=== PATIENT | female | born 1930 | race Caucasian/White ===

== ENCOUNTER → 2018-01-25 | Day surgery (SDC) | payer OTHER, BC ==
[2018-01-19 15:18] VITALS: BMI 27.7
[~2018-01-25] MED LIST: MIDAZOLAM HCL 2 MG/2 ML SINGLE DOSE VIAL ONE; ONDANSETRON 4 MG/2 ML VIAL ONE
[2018-01-25 07:57] VITALS: BP 150/78; PULSE 72; TEMP 97.9
[2018-01-25 08:17] LABS: INR 1.92 (0.82-1.09); PROTHROMBIN TIME (PATIENT) 21.2 SEC (10.2-13.0)
== END | disposition home or self-care (01) ==
LOC: FASU 07:03
PROVIDERS: ATTEND Orthopaedic Surgery Hand Surgery
PROC: 01N50ZZ Release Median Nerve, Open Approach (ICD-10-PCS; principal; 2018-01-25)
DX: G56.01 Carpal tunnel syndrome, right upper limb (principal); Z53.8 Procedure and treatment not carried out for other reasons
CPT/HCPCS: 36415; 85610

== ENCOUNTER 2018-01-26 08:56 | Day surgery (SDC) | payer OTHER, BC ==
[2018-01-26 10:05] LABS: INR 1.39 (0.82-1.09); PROTHROMBIN TIME (PATIENT) 15.5 SEC (10.2-13.0)
[2018-01-26 10:06] VITALS: BMI 27.7
[2018-01-26] MEDS ORDERED: MIDAZOLAM HCL 2 MG/2 ML SINGLE DOSE VIAL ONE (10:09)
[2018-01-26] MEDS ORDERED: PROPOFOL 20 ML ONE (10:09)
[2018-01-26] MEDS ORDERED: LIDOCAINE 1%/EPI 1:100000 (20 ML MULTI DOSE VIAL) ONE (10:31)
[2018-01-26] MEDS ORDERED: SODIUM BICARBONATE 8.4% 50 MEQ/50 ML VIAL ONE (10:31)
[2018-01-26] MEDS ORDERED: LIDOCAINE HCL 2% (20ML MULTI-DOSE VIAL) NR ONE (11:02)
[2018-01-26] MEDS ORDERED: ONDANSETRON 4 MG/2 ML VIAL ONE (11:25)
[2018-01-26] MEDS ORDERED: DEXAMETHASONE SOD PHOSPHATE 4 MG/1 ML VIAL ONE (11:25)
[2018-01-26 12:53] VITALS: TEMP 97.9
[2018-01-26 13:34] VITALS: BP 133/79; PULSE 72
[2018-01-26] MEDS ORDERED: ceFAZolin SODIUM 1 GM VIAL ONE (13:37)
[2018-01-26] MEDS ORDERED: ONDANSETRON 4 MG/2 ML VIAL IVPUSH PRN (15:19)
[2018-01-26] MEDS ORDERED: oxyCODONE HCL 5 MG TABLET PO PRN (15:19)
[2018-01-26] MEDS ORDERED: LACTATED RINGERS SOLUTION 1,000 ML IV SCH (15:30)
--- NOTE | 2018-01-26 19:47 | OP ---
DATE OF OPERATION: 01/26/2018 PREOPERATIVE DIAGNOSIS: 1. Right index trigger finger. 2. Right carpal tunnel syndrome. POSTOPERATIVE DIAGNOSES: 1. Right index trigger finger. 2. Right carpal tunnel syndrome. OPERATIVE PROCEDURE: 1. Right index trigger finger release. 2. Right carpal tunnel release. SURGEON: Will Garza MD ANESTHESIA: Local with sedation. COMPLICATIONS: None. ESTIMATED BLOOD LOSS: Minimal. INDICATION FOR PROCEDURE: The patient is an 87-year-old female with the above findings, indicated for operative treatment. The risks, benefits and alternatives were discussed with the patient at length and proper informed consent was obtained. Of note, the patient was scheduled for this procedure yesterday. However, her INR was too high and so it was rescheduled for today. Today, her INR was at a satisfactory level. DESCRIPTION OF PROCEDURE: After proper identification of the patient and the correct operative site, the patient was brought to the operating room. Sedation was given by the anesthesiologist. Local anesthesia was given with 1% lidocaine with epinephrine and sodium bicarbonate. After letting the epinephrine set for 30 minutes, the patient was placed supine on the operating table with all bony prominences well padded. The right upper extremity was prepped and draped in the usual sterile fashion. A longitudinal incision was made over the proximal aspect of the palm. The incision was taken sharply through the skin with blunt and sharp dissection through the subcutaneous tissues. Meticulous hemostasis was achieved with bipolar electrocautery. The palmar fascia was divided longitudinally. The transverse carpal ligament along with the distal 4 cm of the antebrachial fascia were divided longitudinally under direct visualization with loupe magnification. This provided complete release of the median nerve at the wrist. The wound was irrigated and repaired with 5-0 nylon suture. A second incision was made over the A1 eliot of the right index finger. The incision was taken sharply through the skin with blunt dissection through the subcutaneous tissues. Again, hemostasis was achieved with bipolar electrocautery. The A1 eliot was identified and divided longitudinally. Mild fraying of the tendons was noted. The patient was asked to flex and extend her finger. No further triggering occurred and full range of motion was achieved. The wound was repaired with 5-0 nylon suture. Sterile dressings were applied. The patient brought to the recovery room in stable condition. She tolerated the procedure well. WILL GARZA M.D. [id number]
== END 2018-01-26 13:36 | disposition home or self-care (01) ==
LOC: FASU 08:56
PROVIDERS: ATTEND Orthopaedic Surgery Hand Surgery
PROC: 0LN70ZZ Release Right Hand Tendon, Open Approach (ICD-10-PCS; 2018-01-26)
PROC: 01N50ZZ Release Median Nerve, Open Approach (ICD-10-PCS; principal; 2018-01-26 11:31)
DX: G56.01 Carpal tunnel syndrome, right upper limb (principal); M65.321 Trigger finger, right index finger
CPT/HCPCS: 36415; 85610; 94760

== ENCOUNTER 2018-07-02 16:23 | Emergency (ER) | payer OTHER, BC | END 2018-07-02 18:06 | disposition home or self-care (01) | LOC: JERFT 16:23 ==

== ENCOUNTER 2018-08-02 12:54 | Emergency (ER) | payer OTHER, BC ==
[2018-08-02 13:34] VITALS: BP 109/59; PULSE 71; TEMP 97.8; BMI 27.3
--- NOTE | 2018-08-02 13:43 | PDOC ---
History of Present Illness - General Chief Complaint: Weakness Stated Complaint: Weakness Time Seen by Provider: 08/02/18 13:41 - History of Present Illness Initial Comments: 08/02/18 13:43 Ms. 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 Patient reports she is typically able to talk "for blocks" however lately she has been unable to cross the room without feeling weak. Patient denies any SOB or other symptoms however reports she stops walking as she knows she is "about to become weak" if she continues. Patient denies any other symptoms at this time. The patient denies chest pain, shortness of breath, headache and dizziness. Denies fever, chills, nausea, vomit, diarrhea and constipation. Denies dysuria, frequency, urgency and hematuria. Past History - Past Medical History Allergies/Adverse Reactions: Allergies Allergy/AdvReac Type Severity Reaction Status Date / Time No Known Allergies Allergy Verified 08/02/18 13:34 Home Medications: Ambulatory Orders Rosuvastatin [Crestor -] 10 mg PO HS #30 tablet 07/06/14 Sertraline HCl [Zoloft -] 50 mg PO DAILY #30 tablet 07/06/14 Warfarin Na [Coumadin -] 5 mg PO DAILY@1800 #30 tablet 07/06/14 Gabapentin 100 mg PO QID #120 capsule 08/14/15 Valsartan [Diovan] 160 mg PO DAILY 01/19/18 Acetaminophen 650 mg PO ASDIR PRN 01/25/18 Methocarbamol [Robaxin -] 500 mg PO BID PRN #14 tablet 07/02/18 Methylprednisolone [Medrol Dose Master] 4 mg PO ASDIR #21 tablet 07/02/18 Nitrofurantoin Monohyd/M-Cryst [Macrobid -] 100 mg PO BID #10 capsule 08/02/18 Anemia: No Asthma: No Cancer: No Cardiac Disorders: Yes (H/O Atrial Fibrillation) CVA: Yes (2017, NO WEAKNESS) COPD: No CHF: No Dementia: No Diabetes: No GI Disorders: No Disorders: No HTN: Yes Hypercholesterolemia: Yes Liver Disease: No Seizures: No Thyroid Disease: No - Surgical History Abdominal Surgery: No Appendectomy: No Cardiac Surgery: No Cholecystectomy: No Lung Surgery: No Neurologic Surgery: No Orthopedic Surgery: Yes (RIGHT KNEE REPLACEMENT) - Immunization History Immunization Up to Date: Yes - Suicide/Smoking/Psychosocial Hx Smoking History: Never smoked Have you smoked in the past 12 months: No Information on smoking cessation initiated: No Hx Alcohol Use: No Drug/Substance Use Hx: No Substance Use Type: None Hx Substance Use Treatment: No Review of Systems - Review of Systems Comments:: 08/02/18 14:15 GENERAL/CONSTITUTIONAL: +Weakness as described. No fever or chills. HEAD, EYES, EARS, NOSE AND THROAT: No change in vision. No ear pain or discharge. No sore throat. CARDIOVASCULAR: No chest pain or shortness of breath RESPIRATORY: No cough, wheezing, or hemoptysis. GASTROINTESTINAL: No nausea, vomiting, diarrhea or constipation. GENITOURINARY: No dysuria, frequency, or change in urination. MUSCULOSKELETAL: No joint or muscle swelling or pain. No neck or back pain. SKIN: No rash NEUROLOGIC: No headache, vertigo, loss of consciousness, or change in strength/ sensation. ENDOCRINE: No increased thirst. No abnormal weight change HEMATOLOGIC/LYMPHATIC: No anemia, easy bleeding, or history of blood clots. ALLERGIC/IMMUNOLOGIC: No hives or skin allergy. *Physical Exam - Vital Signs Last Vital Signs Temp Pulse Resp BP Pulse Ox 97.8 F 71 18 109/59 L 97 08/02/18 13:31 08/02/18 13:31 08/02/18 13:31 08/02/18 13:31 08/02/18 13:31 - Physical Exam Comments: 08/02/18 14:18 GENERAL: Awake, alert, and fully oriented, in no acute distress HEAD: No signs of trauma, normocephalic, atraumatic EYES: PERRLA, EOMI, sclera anicteric, conjunctiva clear ENT: Auricles normal inspection, hearing grossly normal, nares patent, oropharynx clear without exudates. Moist mucosa NECK: Normal ROM, supple, no lymphadenopathy, JVD, or masses LUNGS: No distress, speaks full sentences, clear to auscultation bilaterally HEART: +Afib rhythm, regular rate, normal S1 and S2, no murmurs, rubs or gallops , peripheral pulses normal and equal bilaterally. ABDOMEN: Soft, nontender, normoactive bowel sounds. No guarding, no rebound. No masses EXTREMITIES: Normal inspection, Normal range of motion, no edema. No clubbing or cyanosis. NEUROLOGICAL: Cranial nerves II through XII grossly intact. Normal speech, no focal sensorimotor deficits SKIN: Warm, Dry, normal turgor, no rashes or lesions noted. ED Treatment Course - LABORATORY CBC & Chemistry Diagram: 08/02/18 14:58 08/02/18 14:58 Medical Decision Making - Medical Decision Making 08/02/18 15:52 Ms. Howard is an 88 yo female w/ pmh as described who presents for evaluation of weakness as described concerning infection vs. electrolyte abnormality vs. cardiologic process. Patient evaluated with labs as below, EKG, and CXR. Patient found to have UTI. Treatment started w/ rocephin in ED. Patient will be discharged on outpatient ABX with strict return precautions. 08/02/18 17:40 Patient able to ambulate successfully w/out assistance to bathroom. Patient tolerated PO in ED. Discharging to home. Laboratory Results - last 24 hr 08/02/18 08/02/18 08/02/18 14:09 14:58 14:58 WBC 3.3 L RBC 3.94 Hgb 11.8 Hct 34.6 MCV 87.8 MCH 29.9 MCHC 34.0 RDW 15.2 Plt Count 208 D MPV 7.3 L Absolute Neuts (auto) 1.9 Neutrophils % 57.1 Lymphocytes % 31.5 D Monocytes % 10.5 H Eosinophils % 0.2 Basophils % 0.7 Nucleated RBC % 0 PT with INR INR PTT (Actin FS) Sodium 140 Potassium 4.1 Chloride 110 H Carbon Dioxide 25 Anion Gap 5 L BUN 23.1 H Creatinine 1.2 Est GFR (CKD-EPI)AfAm 47.39 Est GFR (CKD-EPI)NonAf 40.89 Random Glucose 125 H Calcium 8.1 L Total Bilirubin 0.2 AST 23 ALT 19 Alkaline Phosphatase 68 Creatine Kinase 53 Troponin I < 0.02 Total Protein 6.1 L Albumin 3.2 L Urine Color Yellow Urine Appearance Clear Urine pH 5.0 Ur Specific Seymour 1.029 Urine Protein Trace Urine Glucose (UA) Negative Urine Ketones Trace H Urine Blood Negative Urine Nitrite Negative Urine Bilirubin Negative Urine Urobilinogen 1.0 Ur Leukocyte Esterase 2+ H Urine WBC (Auto) 55 Urine Casts (Auto) 24 U Pathogenic Cast Auto No Result Required. U Epithel Cells (Auto) 0.8 Urine Bacteria (Auto) 42.2 08/02/18 14:58 WBC RBC Hgb Hct MCV MCH MCHC RDW Plt Count MPV Absolute Neuts (auto) Neutrophils % Lymphocytes % Monocytes % Eosinophils % Basophils % Nucleated RBC % PT with INR 24.50 H INR 2.06 H PTT (Actin FS) 45.5 H Sodium Potassium Chloride Carbon Dioxide Anion Gap BUN Creatinine Est GFR (CKD-EPI)AfAm Est GFR (CKD-EPI)NonAf Random Glucose Calcium Total Bilirubin AST ALT Alkaline Phosphatase Creatine Kinase Troponin I Total Protein Albumin Urine Color Urine Appearance Urine pH Ur Specific Seymour Urine Protein Urine Glucose (UA) Urine Ketones Urine Blood Urine Nitrite Urine Bilirubin Urine Urobilinogen Ur Leukocyte Esterase Urine WBC (Auto) Urine Casts (Auto) U Pathogenic Cast Auto U Epithel Cells (Auto) Urine Bacteria (Auto) *DC/Admit/Observation/Transfer Diagnosis at time of Disposition: UTI (urinary tract infection) Qualifiers: Urinary tract infection type: site unspecified Hematuria presence: without hematuria Qualified Code(s): N39.0 - Urinary tract infection, site not specified - Discharge Dispostion Disposition: HOME - Referrals Referrals: Ron Palafox MD [Primary Care Provider] - - Patient Instructions Printed Discharge Instructions: DI for Urinary Tract Infection (UTI) Additional Instructions: You were evaluate today in the ER for your symptoms and found to be dehydrated with a UTI. Your symptoms improved following hydration and we started you on antibiotics in the ER. We also sent a prescription to your pharmacy. Please take all medications as proscribed. Return to ER if any fever, chills, pain, difficulty taking medications, worsening of weakness, or other concerning symptoms. - Post Discharge Activity
[2018-08-02] MEDS ORDERED: SODIUM CHLORIDE 500 ML IV STA ×2 (14:23→16:03)
[2018-08-02 15:08] LABS: BASO % 0.7 % (0-2.0); EOS % 0.2 % (0-4.5); HEMATOCRIT 34.6 % (32.4-45.2); HEMOGLOBIN 11.8 GM/dL (10.7-15.3); LYMPH % 31.5 % (8-40); MCH 29.9 pg (25.7-33.7); MEAN CELL VOLUME 87.8 fl (80-96); MEAN PLT VOLUME 7.3 fl (7.5-11.1); MONO % 10.5 % (3.8-10.2); NEUT % 57.1 % (42.8-82.8); PLATELET COUNT 208 K/MM3 (134-434); RBC 3.94 M/mm3 (3.60-5.2); RDW 15.2 % (11.6-15.6); WHITE BLOOD COUNT 3.3 K/mm3 (4.0-10.0)
[2018-08-02 15:28] LABS: INR 2.06 (0.83-1.09); PROTHROMBIN TIME (PATIENT) 24.5 SEC (9.7-13.0)
[2018-08-02 15:31] LABS: ACTIVATED PTT 45.5 SECONDS (25.2-36.5)
[2018-08-02 15:42] LABS: EPI CELLS 0.8 /HPF (0-5/HPF); HYALINE CASTS 24 /lpf (0-8); URINE APPEARANCE CLEAR; URINE BACTERIA 42.2 /hpf (NEGATIVE); URINE BILIRUBIN NEGATIVE (NEGATIVE); URINE COLOR YELLOW; URINE GLUCOSE (UA) NEGATIVE (NEGATIVE); URINE KETONE TRACE (NEGATIVE); URINE LEUK ESTERASE 2+ (NEGATIVE); URINE NITRITE NEGATIVE (NEGATIVE); URINE PROTEIN TRACE (NEGATIVE); URINE WBC 55 /hpf (0-5)
[2018-08-02 15:43] LABS: ALBUMIN 3.2 g/dl (3.4-5.0); ALK PHOS 68 U/L (45-117); ANION GAP 5 MMOL/L (8-16); BILIRUBIN,TOTAL 0.2 mg/dL (0.2-1); BLOOD UREA NITROGEN 23.1 mg/dL (7-18); CALCIUM 8.1 mg/dL (8.5-10.1); CHLORIDE 110 mmol/L (98-107); CO2 25 mmol/L (21-32); CREATININE 1.2 mg/dL (0.55-1.3); GLUCOSE,RANDOM 125 mg/dL (74-106); POTASSIUM 4.1 mmol/L (3.5-5.1); SGOT/AST 23 U/L (15-37); SGPT/ALT 19 U/L (13-61); SODIUM 140 mmol/L (136-145); TOT PROT 6.1 g/dl (6.4-8.2)
[2018-08-02] MEDS ORDERED: CEFTRIAXONE 1,000 MG in DEXTROSE 5%-WATER - 50 ML IVPB ONE (15:51)
[2018-08-02] MEDS ORDERED: CEFTRIAXONE 1 GM/50 ML BAG ONE (16:12)
[2018-08-02 16:14] LABS: URINE RBC 7.4 /hpf (0-4)
--- NOTE | 2018-08-02 16:15 | PDOC ---
Documentation entered by Tasia Harris SCRIBE, acting as scribe for Toño Boogie MD. Toño Boogie MD: This documentation has been prepared by the caroleibe, Tasia Harris SCRIBE, under my direction and personally reviewed by me in its entirety. I confirm that the documentation accurately reflects all work, treatment, procedures, and medical decision making performed by me. Attending Attestation - Resident Resident Name: FranklynJamieTrnet - ED Attending Attestation I have performed the following: I have examined & evaluated the patient, The case was reviewed & discussed with the resident, I agree w/resident's findings & plan, Exceptions are as noted - HPI HPI: 08/02/18 14:39 The patient is an 88-year-old female, with a past medical history of a-fib (on Warfarin), HTN, HLD, CVA - 2017 w/ no residual deficits, chronic back pain (on oxycodone for pain relief), who presents to the ED with 2 weeks of weakness on minimal exertion. The patient states that she is normally able to walk for blocks, but has been increasingly more weakness when ambulating around her home. She also reports recent loss of appetite. Patient with a history of chronic back pain and reports that she recently stopped taking her oxycodone. The patient denies any fever, chills, nausea, vomiting, diarrhea, constipation or abdominal pain. Denies any chest pain, palpitations, or shortness of breath. Denies any urinary symptoms. Allergies: NKA Surgical History: RT knee replacement. Social History: None reported. PCP: Dr. Palafox - Physicial Exam PE: 08/02/18 14:40 patient is awake and alert, well-nourished, in no distress Normocephalic, atraumatic pERRLA, EOMI mm-dry cta rrr Abdomen soft, nontender, nondistended No CVA tenderness bilaterally - Medical Decision Making 08/02/18 16:14 Patient is well-appearing 88-year-old female who presents with generalized weakness and malaise. Patient's afebrile and hemodynamically stable. No focal neurological deficits are appreciated. EKG reveals no evidence of acute ischemia , rate-controlled atrial fibrillation is noted. CBC reveals no significant leukocytosis or anemia. CMP reveals minimally decreased calcium and elevated BUN to creatinine ratio. Urinalysis consistent with pyuria. Will treat with IV antibiotics, will hydrate. Will reassess. If patient improves, able to tolerate by mouth and ambulate without difficulty, we'll discharge.
--- NOTE | 2018-08-02 19:21 | EKG ---
Test Reason : Blood Pressure : / mmHG Vent. Rate : 076 BPM Atrial Rate : 375 BPM P-R Int : 000 ms QRS Dur : 132 ms QT Int : 434 ms P-R-T Axes : 000 -41 043 degrees QTc Int : 488 ms ATRIAL FIBRILLATION LEFT AXIS DEVIATION LEFT BUNDLE BRANCH BLOCK ABNORMAL ECG WHEN COMPARED WITH ECG OF 04-JUL-2014 11:04, ATRIAL FIBRILLATION HAS REPLACED SINUS RHYTHM Confirmed by JESUS SOLIMAN, LUDWIN ([id number]) on 08/02/2018 7:20:25 PM Referred By: Confirmed By:LUDWIN LEE MD
== END 2018-08-02 17:46 | disposition home or self-care (01) ==
LOC: JER 12:54
PROC: 3E03329 Introduction of Other Anti-infective into Peripheral Vein, Percutaneous Approach (ICD-10-PCS; principal; 2018-08-02)
PROC: 3E0337Z Introduction of Electrolytic and Water Balance Substance into Peripheral Vein, Percutaneous Approach (ICD-10-PCS; 2018-08-02)
DX: N39.0 Urinary tract infection, site not specified (principal); I10 Essential (primary) hypertension; E78.00 Pure hypercholesterolemia, unspecified; I48.91 Unspecified atrial fibrillation; Z86.73 Personal history of transient ischemic attack (TIA), and cerebral infarction without residual deficits
CPT/HCPCS: 36415; 71045-TC-FY; 80053; 81003; 82550; 84484; 85025; 85610; 85730; 87086; 87186; 93005; 93010; 99283-25; J7030

== ENCOUNTER 2018-08-06 11:58 | Emergency (ER) | payer OTHER, BC ==
[2018-08-06 12:23] VITALS: BP 155/79; PULSE 79; TEMP 98; BMI 25.0
--- NOTE | 2018-08-06 12:47 | PDOC ---
Documentation entered by Tasia Harris SCRIBE, acting as scribe for Renetta Boston MD. Renetta Boston MD: This documentation has been prepared by the scribe, Tasia Harris SCRIBE, under my direction and personally reviewed by me in its entirety. I confirm that the documentation accurately reflects all work, treatment, procedures, and medical decision making performed by me. 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 The patient was seen in the ED on 08/02/18 and had a workup done that was significant for a UTI. She was placed on Macrobid ( is on day 4/5), was hydrated, and subsequently was discharged. Urine culture was positive for e.coli that was morton sensitive. She presents to the ED today because her symptoms have not improved. The patient denies any fevers, chills, vomiting, or abdominal pain. Denies any chest pain or shortness of breath. Denies any headache, lightheadedness, or sensory changes. Allergies: NKA Social History: Denies Surgical History: RT knee replacement. 08/06/18 14:27 - Physicial Exam PE: 08/06/18 12:45 Agree with the resident's HPI and PE as documented in the electronic medical record. NAD, well appearing, EOMI, PERRL, nl conjunctiva, anicteric; neck supple. lungs clear, RRR, abdomen soft nontender. Back nontender. PURI x4, no focal neuro deficits. No pitting peripheral edema. normal color for ethnicity, WWP. - Medical Decision Making 08/06/18 12:45 See HPI for details. Prior notes reviewed, including admissions, discharges and consultations. DDX CVA, mass, bleed, infection, anemia, electrolyte/metabolic derangements, infection, medication side effect Vital signs reviewed, wnl. laboratory results and imaging reviewed, basic labs and lytes wnl, notable for similar results from 4 days ago coags with mildly elevated INR 3.9, but no bleeding or concern for complication from higher INR. UA_neg, cultures from last time 08/02 with E coli, CXR_no acute pathology CT head neg for bleed/pathology or mass Cardiac panel_neg trop EKG normal sinus rhythm at 66 bpm, no interval abnormalities, wide QRS, LBBB, ST and T wave segments and morphology normal. Nonspecific T wave abnormalities - neg for Sgarbossa's criteria, unchanged from prior. ED course -checked last ED visit 08/02/18 for similar sx, weakness, dx'd with UTI, E coli on culture - imaging/workup here neg - 2 weeks of sx, trops/neg, otherwise no cp or sob. abdomen soft, nontender, so doubt intra abdominal pathology can rx zofran for nausea, but doubt ACS with neg trop/unchanged/stable EKG chronicity of sx x 2 weeks, prompt PCP followup Pt to be discharged in stable condition. Patient and family made aware of clinical impression, treatment recommendations and disposition plan, return precautions discussed (including but not limited to new or persistent/worsening symptoms, pain, fevers, or signs of infection, chest pain, respiratory distress , inability to tolerate oral intake, dehydration, syncope, or neurologic changes ). Follow up with PMD and/or specialist as recommended, follow up information provided, take medications as instructed for duration of time. continue with supportive care, avoid triggers and precipitants. All questions answered to patient's satisfaction and expressed understanding and comfort with this. At the time of discharge, the patient is alert, clinically improved, tolerating po and verbalizes understanding of instructions, satisfied with the care received and felt comfortable with the plan. Patient does not suffer from an acute life- threatening medical condition at this time and is safe for outpatient follow- up. 08/06/18 12:46 08/06/18 14:27 Heart Score/ECG Review #1 ECG reviewed & interpreted by me at: 12:25 General ECG Interpretation: Sinus Rhythm, Normal Rate, Normal Intervals Compared to previous ECG there are: No significant change 08/06/18 12:46 EKG normal sinus rhythm at 66 bpm, no interval abnormalities, wide QRS, LBBB, ST and T wave segments and morphology normal. Nonspecific T wave abnormalities - neg for Sgarbossa's criteria, unchanged from prior.
--- NOTE | 2018-08-06 13:04 | PDOC ---
History of Present Illness - History of Present Illness Initial Comments: 08/06/18 12:59 88 yo F with h/o HTN, HLD, CVA (2017), chronic back pain, herniated disc who p/ w lightheadedness, weakness. Patient reports worsening weakness, and lightheadedness x 2 weeks. States that she feels " head pressure," and lightheaded sensation with movement. Also endorses progressive difficulty with ambulation. Typically ambulates with cane. Denies fall, LOC. + nausea without vomiting, decreased appetite/PO intake x 3 days. Recently evaluated [facility] ( ) for similar presentation. Treated for UTI. Patient denies DAWSON, vision change, palpitations, cough, wheezing, orthopena, PND , leg swelling/pain, N/V, F,C, CP, SOB, urinary complaints, hematuria, BPR, abdominal pain, diarrhea, constipation, sensory changes. PMHx: as noted above ROS: as noted SHx: Denies Etoh, IVDA, tobacco use Allergies: NKDA <Gigi Schmid - Last Filed: 08/06/18 15:03> <Renetta Boston - Last Filed: 08/07/18 21:56> - General Chief Complaint: Weakness Stated Complaint: NAUSEA Time Seen by Provider: 08/06/18 12:13 Past History - Past Medical History Anemia: No Asthma: No Cancer: No Cardiac Disorders: Yes (H/O Atrial Fibrillation) CVA: Yes (2017, NO WEAKNESS) COPD: No CHF: No Dementia: No Diabetes: No GI Disorders: No Disorders: No HTN: Yes Hypercholesterolemia: Yes Liver Disease: No Seizures: No Thyroid Disease: No - Surgical History Abdominal Surgery: No Appendectomy: No Cardiac Surgery: No Cholecystectomy: No Lung Surgery: No Neurologic Surgery: No Orthopedic Surgery: Yes (RIGHT KNEE REPLACEMENT) - Immunization History Immunization Up to Date: Yes - Suicide/Smoking/Psychosocial Hx Smoking History: Never smoked Have you smoked in the past 12 months: No Hx Alcohol Use: No Drug/Substance Use Hx: No Substance Use Type: None Hx Substance Use Treatment: No <Gigi Schmid - Last Filed: 08/06/18 15:03> <Renetta Boston - Last Filed: 08/07/18 21:56> - Past Medical History Allergies/Adverse Reactions: Allergies Allergy/AdvReac Type Severity Reaction Status Date / Time No Known Allergies Allergy Verified 08/02/18 13:34 Home Medications: Ambulatory Orders Rosuvastatin [Crestor -] 10 mg PO HS #30 tablet 07/06/14 Sertraline HCl [Zoloft -] 50 mg PO DAILY #30 tablet 07/06/14 Warfarin Na [Coumadin -] 5 mg PO DAILY@1800 #30 tablet 07/06/14 Acetaminophen 650 mg PO ASDIR PRN 01/25/18 Nitrofurantoin Monohyd/M-Cryst [Macrobid -] 100 mg PO BID #10 capsule 08/02/18 Aspirin [ASA -] 81 mg PO DAILY 08/06/18 Gabapentin 100 mg PO TID 08/06/18 Irbesartan 150 mg PO DAILY 08/06/18 Ondansetron [Ondansetron Odt] 4 mg PO PRN #30 tab.rapdis MDD 8 mg 08/06/18 Review of Systems - Review of Systems Comments:: 08/06/18 13:04 GENERAL/CONSTITUTIONAL: + Weakness. No fever or chills. HEAD, EYES, EARS, NOSE AND THROAT: No change in vision. No ear pain or discharge. No sore throat. CARDIOVASCULAR: No chest pain or shortness of breath RESPIRATORY: No cough, wheezing, or hemoptysis. GASTROINTESTINAL:+ nausea.No vomiting, diarrhea or constipation. GENITOURINARY: No dysuria, frequency, or change in urination. MUSCULOSKELETAL: No joint or muscle swelling or pain. No neck or back pain. SKIN: No rash NEUROLOGIC: + Lightheadedness. No loss of consciousness, or change in strength/ sensation. ENDOCRINE: No increased thirst. No abnormal weight change HEMATOLOGIC/LYMPHATIC: No anemia, easy bleeding, or history of blood clots. ALLERGIC/IMMUNOLOGIC: No hives or skin allergy. <Gigi Schmid - Last Filed: 08/06/18 15:03> *Physical Exam - Vital Signs Last Vital Signs Temp Pulse Resp BP Pulse Ox 98 F 79 99 H 155/79 100 08/06/18 12:05 08/06/18 12:05 08/06/18 12:05 08/06/18 12:05 08/06/18 12:05 - Physical Exam Comments: 08/06/18 13:05 GENERAL: Awake, alert, and fully oriented, in no acute distress HEAD: No signs of trauma, normocephalic, atraumatic EYES: PERRLA, EOMI, sclera anicteric, conjunctiva clear ENT: Auricles normal inspection, hearing grossly normal, nares patent, oropharynx clear without exudates. Moist mucosa NECK: Normal ROM, supple, no lymphadenopathy, JVD, or masses LUNGS: No distress, speaks full sentences, clear to auscultation bilaterally HEART: Regular rate and rhythm, normal S1 and S2, no murmurs, rubs or gallops, peripheral pulses normal and equal bilaterally. ABDOMEN: Soft, nontender, normoactive bowel sounds. No guarding, no rebound. No masses EXTREMITIES : Normal inspection, Normal range of motion, no edema. No clubbing or cyanosis. NEUROLOGICAL: Cranial nerves II through XII grossly intact. Normal speech, no focal sensorimotor deficits SKIN: Warm, Dry, normal turgor, no rashes or lesions noted <Gigi Schmid - Last Filed: 08/06/18 15:03> - Vital Signs Last Vital Signs Temp Pulse Resp BP Pulse Ox 98 F 79 19 155/79 100 08/06/18 12:05 08/06/18 12:05 08/06/18 12:05 08/06/18 12:05 08/06/18 12:05 <Renetta Boston - Last Filed: 08/07/18 21:56> ED Treatment Course - LABORATORY CBC & Chemistry Diagram: 08/06/18 13:29 08/06/18 13:29 <Gigi Schmid - Last Filed: 08/06/18 15:03> - LABORATORY CBC & Chemistry Diagram: 08/06/18 13:29 08/06/18 13:29 - ADDITIONAL ORDERS Additional order review: 08/06/18 13:30 Urine Culture - Final Urine - Urine Clean Catch NO GROWTH OBTAINED 08/06/18 13:29 RBC 3.88 MCV 87.2 MCHC 33.5 RDW 14.8 MPV 7.4 L Neutrophils % 72.8 D Lymphocytes % 20.1 D Monocytes % 6.8 Eosinophils % 0.2 Basophils % 0.1 <Renetta Botson - Last Filed: 08/07/18 21:56> Medical Decision Making - Medical Decision Making 08/06/18 13:07 88 yo F with h/o HTN, HLD, CVA (2017), chronic back pain, herniated disc who p/ w lightheadedness, weakness. HR 99, vitals otherwise wnl, AF, A&Ox3. Physical exam unremarkable. Will assess for VBI/TIA, cardiac dysarrythmias, hypoglycemia , electrolyte abnml, metabolic and toxic derangements, acid-base disturbances, infection. Ed Course: 08/06/18 14:07 Laboratory Tests 08/06/18 08/06/18 08/06/18 13:29 13:29 13:30 WBC 4.1 Hgb 11.4 Hct 33.9 Plt Count 225 Troponin I < 0.02 Urine Color Yellow Urine Nitrite Negative Ur Leukocyte Esterase Negative 08/06/18 14:07 CXR: Unremarkable CTH: Negative, no acute pathology Patient stable. Advised to f/u PMD. Advised to f/u PMD serial INR 08/06/18 15:03 <Gigi Schmid - Last Filed: 08/06/18 15:03> *DC/Admit/Observation/Transfer - Discharge Dispostion Decision to Admit order: No <Gigi Schmid - Last Filed: 08/06/18 15:03> <Renetta Boston - Last Filed: 08/07/18 21:56> Diagnosis at time of Disposition: Weakness, Dizziness, Nausea - Discharge Dispostion Disposition: HOME Condition at time of disposition: Stable - Prescriptions Prescriptions: Ondansetron [Ondansetron Odt] 4 mg PO PRN #30 tab.rapdis MDD 8 mg - Patient Instructions Printed Discharge Instructions: DI for Muscle Weakness, DI for Dizziness- Nonvertigo, DI for Nausea -- Adult Additional Instructions: Please return to the emergency department with any new or worsening symptoms or concerns. Please follow up with your primary care physician within 72 hours.
[2018-08-06 13:37] LABS: BASO % 0.1 % (0-2.0); EOS % 0.2 % (0-4.5); HEMATOCRIT 33.9 % (32.4-45.2); HEMOGLOBIN 11.4 GM/dL (10.7-15.3); LYMPH % 20.1 % (8-40); MCH 29.3 pg (25.7-33.7); MCHC 33.5 g/dl (32.0-36.0); MEAN CELL VOLUME 87.2 fl (80-96); MEAN PLT VOLUME 7.4 fl (7.5-11.1); MONO % 6.8 % (3.8-10.2); NEUT % 72.8 % (42.8-82.8); RBC 3.88 M/mm3 (3.60-5.2); RDW 14.8 % (11.6-15.6); WHITE BLOOD COUNT 4.1 K/mm3 (4.0-10.0)
[2018-08-06 13:47] LABS: INR 3.9 (0.83-1.09); PROTHROMBIN TIME (PATIENT) 46.7 SEC (9.7-13.0)
[2018-08-06 13:54] LABS: PLATELET COUNT 225 K/MM3 (134-434)
[2018-08-06 13:57] LABS: ALBUMIN 3.6 g/dl (3.4-5.0); ALK PHOS 70 U/L (45-117); ANION GAP 6 MMOL/L (8-16); BILIRUBIN,TOTAL 0.4 mg/dL (0.2-1); BLOOD UREA NITROGEN 13.6 mg/dL (7-18); CALCIUM 8.7 mg/dL (8.5-10.1); CHLORIDE 112 mmol/L (98-107); CO2 25 mmol/L (21-32); CREATININE 0.9 mg/dL (0.55-1.3); GLUCOSE,RANDOM 98 mg/dL (74-106); POTASSIUM 4.3 mmol/L (3.5-5.1); SGOT/AST 23 U/L (15-37); SGPT/ALT 19 U/L (13-61); SODIUM 143 mmol/L (136-145); TOT PROT 6.6 g/dl (6.4-8.2)
[2018-08-06 13:58] LABS: EPI CELLS 0.5 /HPF (0-5/HPF); HYALINE CASTS 0 /lpf (0-8); PH,URINE 6.5 (5.0-8.0); URINE APPEARANCE CLEAR; URINE BACTERIA 4.9 /hpf (NEGATIVE); URINE BILIRUBIN NEGATIVE (NEGATIVE); URINE COLOR YELLOW; URINE GLUCOSE (UA) NEGATIVE (NEGATIVE); URINE KETONE TRACE (NEGATIVE); URINE LEUK ESTERASE NEGATIVE (NEGATIVE); URINE NITRITE NEGATIVE (NEGATIVE); URINE PROTEIN NEGATIVE (NEGATIVE); URINE RBC 5 /hpf (0-4); URINE WBC 1 /hpf (0-5)
--- NOTE | 2018-08-07 09:38 | EKG ---
Test Reason : Blood Pressure : / mmHG Vent. Rate : 066 BPM Atrial Rate : 066 BPM P-R Int : 164 ms QRS Dur : 132 ms QT Int : 448 ms P-R-T Axes : 008 -36 026 degrees QTc Int : 469 ms NORMAL SINUS RHYTHM LEFT AXIS DEVIATION LEFT BUNDLE BRANCH BLOCK ABNORMAL ECG WHEN COMPARED WITH ECG OF 02-AUG-2018 15:25, SINUS RHYTHM HAS REPLACED ATRIAL FIBRILLATION Confirmed by FELIPE SOLIMAN, DARLYN ([id number]) on 08/07/2018 9:38:17 AM Referred By: Confirmed By:DARLYN WANG MD
== END 2018-08-06 15:31 | disposition home or self-care (01) ==
LOC: JER 11:58
DX: R53.1 Weakness (principal); R52 Pain, unspecified; R11.0 Nausea; Z87.440 Personal history of urinary (tract) infections; Z79.2 Long term (current) use of antibiotics; I10 Essential (primary) hypertension; E78.5 Hyperlipidemia, unspecified; I48.91 Unspecified atrial fibrillation; Z79.01 Long term (current) use of anticoagulants; Z86.73 Personal history of transient ischemic attack (TIA), and cerebral infarction without residual deficits; M54.9 Dorsalgia, unspecified; G89.29 Other chronic pain
CPT/HCPCS: 36415; 70450-TC; 71045-TC-FY; 80053; 81003; 84484; 85025; 85610; 87086; 93005; 93010; 99283-25

== ENCOUNTER 2020-08-01 20:06 | Inpatient (IN) | payer OTHER, BC ==
[2020-08-01 20:23] VITALS: BMI 28.2
[2020-08-01] MEDS ORDERED: LIDOCAINE 5% TOPICAL PATCH TP ONE (21:20)
[2020-08-01 21:30] LABS: BASO % 0.4 % (0-2.0); EOS % 0.7 % (0-4.5); HEMATOCRIT 31.2 % (32.4-45.2); HEMOGLOBIN 10.4 GM/dL (10.7-15.3); LYMPH % 23.6 % (8-40); MCH 29.3 pg (25.7-33.7); MCHC 33.3 g/dl (32.0-36.0); MEAN CELL VOLUME 88.2 fl (80-96); MEAN PLT VOLUME 7.2 fl (7.5-11.1); MONO % 8.6 % (3.8-10.2); NEUT % 66.7 % (42.8-82.8); PLATELET COUNT 236 10^3/uL (134-434); RBC 3.54 M/mm3 (3.60-5.2); RDW 14.3 % (11.6-15.6); WHITE BLOOD COUNT 4.9 K/mm3 (4.0-10.0)
[2020-08-01 21:36] LABS: PROTHROMBIN TIME (PATIENT) 48.8 SEC (9.7-13.0)
[2020-08-01 21:39] LABS: ACTIVATED PTT 43.8 SECONDS (25.2-36.5)
[2020-08-01 21:54] LABS: CHLORIDE 110 mmol/L (98-107); SODIUM 143 mmol/L (136-145)
[2020-08-01 21:57] LABS: ALBUMIN 3.4 g/dl (3.4-5.0); ANION GAP 6 MMOL/L (8-16); CALCIUM 8.5 mg/dL (8.5-10.1); CO2 27 mmol/L (21-32); GLUCOSE,RANDOM 86 mg/dL (74-106)
[2020-08-01 21:59] LABS: CREATININE 0.9 mg/dL (0.55-1.3); SGOT/AST 13 U/L (15-37); SGPT/ALT 14 U/L (13-61)
[2020-08-01 22:02] LABS: ALK PHOS 70 U/L (45-117); BILIRUBIN,TOTAL 0.2 mg/dL (0.2-1); TOT PROT 6.6 g/dl (6.4-8.2)
[2020-08-01 22:05] LABS: INR 4.13 (0.83-1.09)
[2020-08-01] MEDS ORDERED: LIDOCAINE 5% TOPICAL PATCH ONE (22:47)
[2020-08-01] MEDS ORDERED: morphine CARPU-JECT 2 MG/1 ML DISP.SYRIN IVPUSH ONE (23:01)
[2020-08-01 23:47] LABS: EPI CELLS 16 /uL (0-25.1); HYALINE CASTS 1 /uL (0-3.1); PH,URINE 5.5 (5.0-8.0); URINE APPEARANCE CLOUDY; URINE BACTERIA 31 /uL (0-1359); URINE BILIRUBIN NEGATIVE (NEGATIVE); URINE COLOR YELLOW; URINE GLUCOSE (UA) NEGATIVE (NEGATIVE); URINE KETONE NEGATIVE (NEGATIVE); URINE LEUK ESTERASE 3+ (NEGATIVE); URINE NITRITE NEGATIVE (NEGATIVE); URINE PROTEIN NEGATIVE (NEGATIVE); URINE RBC 76 /uL (0-23.9); URINE WBC 178 /uL (0-25.8)
[2020-08-01 23:48] LABS: YEAST NON SEEN (NEGATIVE)
[2020-08-02] MEDS ORDERED: LIDOCAINE 5% TOPICAL PATCH ONE (00:22)
[2020-08-02] MEDS ORDERED: CEFTRIAXONE 1,000 MG in DEXTROSE 5%-WATER - 50 ML IVPB ONE (00:40)
[2020-08-02] MEDS ORDERED: CEFTRIAXONE 1 GM/50 ML BAG ONE (01:34)
[2020-08-02] MEDS ORDERED: LOSARTAN POTASSIUM 50 MG TABLET PO ONE ×2 (03:35→11:54)
[2020-08-02] MEDS ORDERED: LOSARTAN POTASSIUM 50 MG TABLET ONE ×2 (03:44→10:20)
[2020-08-02] MEDS ORDERED: SODIUM CHLORIDE 0.45% 1,000 ML IV SCH (06:00)
[2020-08-02] MEDS ORDERED: ACETAMINOPHEN 325 MG TABLET (FP) PO PRN (06:29)
[2020-08-02] MEDS ORDERED: GABAPENTIN 100 MG CAPSULE ONE (06:36)
[2020-08-02] MEDS: GABAPENTIN 100 MG CAPSULE PO SCH ×3 (06:44→21:40)
[2020-08-02] MEDS ORDERED: LOSARTAN POTASSIUM 50 MG TABLET PO SCH (10:00)
[2020-08-02] MEDS ORDERED: LIDOCAINE PATCH REMOVAL MC SCH ×2 (10:00→22:00)
[2020-08-02] MEDS ORDERED: SERTRALINE HCL 50 MG TABLET (FP) ONE (10:20)
[2020-08-02] MEDS ORDERED: ASPIRIN 81 MG CHEWABLE TABLETS ONE (10:20)
[2020-08-02] MEDS ORDERED: SODIUM CHLORIDE 1,000 ML IV SCH (10:30)
[2020-08-02] MEDS: ASPIRIN 81 MG CHEWABLE TABLETS PO SCH (10:50)
[2020-08-02] MEDS: SERTRALINE HCL 50 MG TABLET (FP) PO SCH (10:50)
[2020-08-02] MEDS: LIDOCAINE 5% TOPICAL PATCH TP SCH (11:06)
[2020-08-02] MEDS: LOSARTAN POTASSIUM 50 MG TABLET PO SCH (11:06)
[2020-08-02 12:47] LABS: HEMATOCRIT 33.8 % (32.4-45.2); MCH 28.9 pg (25.7-33.7); MCHC 32.5 g/dl (32.0-36.0); MEAN CELL VOLUME 89.1 fl (80-96); MEAN PLT VOLUME 7.6 fl (7.5-11.1); PLATELET COUNT 251 10^3/uL (134-434); RBC 3.79 M/mm3 (3.60-5.2); RDW 14.7 % (11.6-15.6); WHITE BLOOD COUNT 6.3 K/mm3 (4.0-10.0)
[2020-08-02 13:11] LABS: ALBUMIN 3.5 g/dl (3.4-5.0); BLOOD UREA NITROGEN 23.3 mg/dL (7-18)
[2020-08-02 13:12] LABS: INR 3.88 (0.83-1.09); PROTHROMBIN TIME (PATIENT) 45.1 SEC (9.7-13.0)
[2020-08-02 13:14] LABS: PHOSPHOROUS 3.1 mg/dL (2.5-4.9)
[2020-08-02 13:16] LABS: BILIRUBIN,TOTAL 0.5 mg/dL (0.2-1); TOT PROT 6.8 g/dl (6.4-8.2)
[2020-08-02] MEDS ORDERED: ROSUVASTATIN CA 20 MG TABLET (FP) PO SCH (22:00)
[2020-08-03] MEDS: GABAPENTIN 100 MG CAPSULE PO SCH (06:41)
[2020-08-03 08:11] LABS: HEMATOCRIT 34.4 % (32.4-45.2); HEMOGLOBIN 11.3 GM/dL (10.7-15.3); MCH 29.4 pg (25.7-33.7); MCHC 32.9 g/dl (32.0-36.0); MEAN CELL VOLUME 89.3 fl (80-96); MEAN PLT VOLUME 7.9 fl (7.5-11.1); PLATELET COUNT 251 10^3/uL (134-434); RBC 3.85 M/mm3 (3.60-5.2); RDW 14.6 % (11.6-15.6); WHITE BLOOD COUNT 5.3 K/mm3 (4.0-10.0)
[2020-08-03 08:20] LABS: BLOOD UREA NITROGEN 18.1 mg/dL (7-18); CALCIUM 8.9 mg/dL (8.5-10.1)
[2020-08-03 08:22] LABS: ALBUMIN 3.1 g/dl (3.4-5.0)
[2020-08-03 08:24] LABS: PHOSPHOROUS 3.6 mg/dL (2.5-4.9)
[2020-08-03 08:25] LABS: TOT PROT 6.3 g/dl (6.4-8.2)
[2020-08-03 08:34] LABS: BILIRUBIN,TOTAL 0.6 mg/dL (0.2-1)
[2020-08-03 09:19] VITALS: PULSE 76; TEMP 98.5
[2020-08-03] MEDS: SERTRALINE HCL 50 MG TABLET (FP) PO SCH (09:20)
[2020-08-03] MEDS: LOSARTAN POTASSIUM 50 MG TABLET PO SCH (09:20)
[2020-08-03] MEDS: LIDOCAINE 5% TOPICAL PATCH TP SCH (09:20)
[2020-08-03] MEDS: ASPIRIN 81 MG CHEWABLE TABLETS PO SCH (09:20)
[2020-08-03] MEDS ORDERED: CEFTRIAXONE 1 GM in DEXTROSE 5%-WATER - 50 ML IVPB SCH (10:00)
[2020-08-03 12:09] VITALS: BP 162/90
== END 2020-08-03 13:22 | disposition home health service (06) | DRG 312 ==
LOC: JER 20:06 → JERBED 08-02 04:33 → J4W 08-02 10:54
PROVIDERS: ADMIT Hospitalist; ATTEND Internal Medicine
DX: I95.1 Orthostatic hypotension (principal); I10 Essential (primary) hypertension; Z86.73 Personal history of transient ischemic attack (TIA), and cerebral infarction without residual deficits; E78.5 Hyperlipidemia, unspecified; I48.91 Unspecified atrial fibrillation; R94.31 Abnormal electrocardiogram [ECG] [EKG]; E86.0 Dehydration; R82.81 Pyuria; Z79.01 Long term (current) use of anticoagulants; S70.01XA Contusion of right hip, initial encounter; W19.XXXA Unspecified fall, initial encounter; Y93.89 Activity, other specified; Y92.009 Unspecified place in unspecified non-institutional (private) residence as the place of occurrence of the external cause; Y99.8 Other external cause status
CPT/HCPCS: 36415; 70450-TC; 72170-TC-FY; 72192-TC; 73552-TC-RT-FY; 80053; 81003; 83735; 84100; 84484; 85025; 85027; 85610; 85730; 87086; 93005; 93010; 97161-GP; 99285-25; C9803; U0003; U0005